=== PATIENT | female | born 1970 | race Caucasian/White ===

== ENCOUNTER 2023-01-12 20:46 | Emergency (ER) | payer OTHER ==
[~2023-01-12] VITALS: Ht 162.6 cm; Wt 80.0 kg
[2023-01-12] MEDS ORDERED: METOCLOPRAMIDE HCL 5MG/ml INJ 2ml VIAL IM ONE (21:30)
[2023-01-12] MEDS ORDERED: MECLIZINE HCL 25 MG TAB PO ONE (21:30)
[2023-01-12 22:01] VITALS: PULSE 88; RESP 22; TEMP 97.9; O2SAT 100
[2023-01-12 22:02] LABS: Basophils # (auto) 0.1 10 ^3/uL (0-0.2); Basophils % (auto) 0.8 % (0.0-2.0); Eosinophils # (auto) 0.4 10 ^3/uL (0-0.8); Eosinophils % (auto) 4.8 % (0.0-7.0); Hematocrit 36.2 % (36.0-46.0); Hemoglobin 11.8 g/dL (12.2-16.2); Lymphocytes # (auto) 1.3 10 ^3/uL (0.4-5.4); Lymphocytes % (auto) 16.4 % (10.0-50.0); Mean Corpuscular Hgb Conc. 32.6 g/dL (32.0-36.0); Monocytes # (auto) 0.4 10 ^3/uL (0-1.3); Monocytes % (auto) 4.6 % (0.0-12.0); Neutrophils # (auto) 5.7 10 ^3/uL (1.6-8.6); Neutrophils % (auto) 73.4 % (37.0-80.0); Red Blood Cells 3.82 10^6/uL (4.0-5.20); Red Cell Distribution Width 14.2 % (11.8-14.3); White Blood Cell 7.7 10^3/uL (4.4-10.8)
[2023-01-12 22:28] LABS: Alanine Aminotransferase 22 U/L (7-40); Alkaline Phosphatase 69 U/L (46-116); Anion Gap 9 (5-15); Aspartate Aminotransferase 17 U/L (13-40); Bilirubin, Total 0.2 mg/dL (0.2-1.0); Blood Urea Nitrogen 15 mg/dL (9-23); Carbon Dioxide 22 mmol/L (20-30); Chloride 107 mmol/L (98-107); Glucose 168 mg/dL (74-106); Sodium 138 mmol/L (136-145); Total Protein 6.3 g/dL (5.7-8.2)
[2023-01-13 00:28] LABS: Urine Bacteria MANY /hpf (None Seen); Urine Blood Negative /uL (Negative); Urine Clarity Clear (Clear); Urine Color Yellow (Yellow); Urine Protein, UAD TRACE (Negative); Urine WBC 14 /hpf (0 - 5)
[2023-01-13] MEDS ORDERED: NITROFURANTOIN 100 mg CAP PO ONE (01:00)
[2023-01-13] MEDS ORDERED: ZOFR4T PO (01:05)
[2023-01-13] MEDS ORDERED: NITR-87 PO (01:05)
[2023-01-13] MEDS ORDERED: MECL1TAB42 PO (01:05)
[2023-01-13] MEDS ORDERED: ONDANSETRON ODT 4 MG TAB PO ONE (01:15)
[2023-01-13 01:35] VITALS: BP 112/67; PULSE 86; RESP 18; O2SAT 96
== END 2023-01-13 01:43 | disposition home or self-care (01) ==
LOC: ER 20:46 → EDBD 20:46 → ER 01-13 01:43
DX: N39.0 Urinary tract infection, site not specified (principal)
CPT/HCPCS: 36415; 70450; 80053; 81001; 83880; 84484; 85025; 93005; 96372; 99285; J2765; J8597